=== PATIENT | male | born 2000 | race Caucasian/White ===

== ENCOUNTER 2021-02-12 19:04 | Emergency (ER) | payer BC ==
[~2021-02-12] VITALS: Ht 193 cm; Wt 114.9 kg
--- NOTE | 2021-02-12 19:54 | NUR ---
STREP SWAB SENT TO LAB AT THIS TIME
[2021-02-12] MEDS ORDERED: DEXAMETHASONE 4 MG TABLET PO ONE (20:00)
[2021-02-12] MEDS ORDERED: IBUPROFEN 800 MG TABLET PO ONE (22:00)
[2021-02-12] MEDS ORDERED: DEXAMETHASONE 4 MG TABLET ONE (22:26)
[2021-02-12] MEDS ORDERED: IBUPROFEN 800 MG TABLET ONE (22:26)
[2021-02-12 22:53] VITALS: BP 131/70
--- NOTE | 2021-02-12 22:54 | NUR ---
Patient/Caregiver given discharge instructions and they have confirmed that they understand the instructions. Patient ambulatory with steady gait. NAD, all questions answered appropriately, denies additional needs at this time. No personal belongings left in room after discharge.
== END 2021-02-12 22:58 | disposition home or self-care (01) ==
LOC: ED 19:15
DX: J02.9 Acute pharyngitis, unspecified (principal)
CPT/HCPCS: 87081; 87880; 99283